=== PATIENT | female | born 1960 | race Caucasian/White ===

== ENCOUNTER 2016-05-17 21:53 | Outpatient (CLI) | payer MEDICARE ==
[2016-05-18 08:22] LABS: Chloride 100.1 mmol/L (98-107); Potassium 3.8 mmol/L (3.6-5.0)
[2016-05-18 08:23] LABS: Albumin 2.7 g/dL (3.9-5); Albumin/Globulin Ratio 0.6 %; Bilirubin,Total 0.4 mg/dL (0.1-1.2); Magnesium 1.8 mg/dL (1.7-2.3); Phosphorous 3.5 mg/dL (2.5-4.5); Total Protein 6.9 g/dL (6.3-8.2)
[2016-05-18 08:30] LABS: INR 1.11 (0.87-1.13); Red Blood Count 3.92 M/mm3 (3.65-5.03); White Blood Count 8.9 K/mm3 (4.5-11.0)
[2016-05-18 08:31] LABS: Hematocrit 29.8 % (30.3-42.9); Hemoglobin 9.2 gm/dl (10.1-14.3); Mean Corpuscular HGB Conc 31 % (30-34); Mean Corpuscular Hemoglobin 24 pg (28-32); Mean Corpuscular Volume 76 fl (79-97); Platelet Count 397 K/mm3 (140-440); Red Cell Distribution Width 24.6 % (13.2-15.2)
[2016-05-18 08:32] LABS: Eosinophils % (Auto) 2.3 % (0.0-4.3)
== END 2016-05-17 21:54 | disposition home or self-care (01) ==
LOC: LABHHL 21:53
DX: K91.89 Other postprocedural complications and disorders of digestive system (principal)
CPT/HCPCS: 36415; 80053; 83735; 84100; 85025; 85610

== ENCOUNTER 2016-05-25 13:26 | Outpatient (CLI) | payer MEDICARE ==
[2016-05-25 13:47] LABS: Hematocrit 31.9 % (30.3-42.9); Mean Corpuscular HGB Conc 32 % (30-34); Mean Corpuscular Volume 77 fl (79-97); Platelet Count 360 K/mm3 (140-440); Red Blood Count 4.13 M/mm3 (3.65-5.03); White Blood Count 9.3 K/mm3 (4.5-11.0)
[2016-05-25 13:54] LABS: INR 1.3 (0.87-1.13)
[2016-05-25 13:58] LABS: Mean Corpuscular Hemoglobin 24 pg (28-32); Red Cell Distribution Width 26.8 % (13.2-15.2)
[2016-05-25 14:02] LABS: Albumin 2.9 g/dL (3.9-5); Albumin/Globulin Ratio 0.7 %; Bilirubin,Total 0.4 mg/dL (0.1-1.2); Calcium 10.2 mg/dL (8.4-10.2); Chloride 99.6 mmol/L (98-107); Magnesium 1.8 mg/dL (1.7-2.3); Phosphorous 2.7 mg/dL (2.5-4.5); Potassium 3.7 mmol/L (3.6-5.0)
[2016-05-25 16:09] LABS: Basophils % (Manual) 0 % (0.0-1.8); Blastocytes % (Manual) 0 %
[2016-05-25 16:10] LABS: Hypochromasia 1+; Large Platelets 2+; Ovalocytes Few; Target Cells 1+; Tear Drop Cells Rare
[2016-05-25 16:19] LABS: Diff Status Complete; Platelet Estimate Consistent w Auto
== END 2016-05-25 13:27 | disposition home or self-care (01) ==
LOC: LAB 13:26
DX: K91.89 Other postprocedural complications and disorders of digestive system (principal)
CPT/HCPCS: 36415; 80053; 83735; 84100; 84478; 85007; 85025; 85610

== ENCOUNTER 2016-06-14 10:32 | Outpatient (CLI) | payer MEDICARE ==
[2016-06-14 10:47] LABS: Hematocrit 33.6 % (30.3-42.9); Hemoglobin 10.7 gm/dl (10.1-14.3); Mean Corpuscular HGB Conc 32 % (30-34); Mean Corpuscular Volume 77 fl (79-97); Platelet Count 397 K/mm3 (140-440); Red Blood Count 4.36 M/mm3 (3.65-5.03); White Blood Count 6.5 K/mm3 (4.5-11.0)
[2016-06-14 10:48] LABS: Mean Corpuscular Hemoglobin 25 pg (28-32); Red Cell Distribution Width 27.9 % (13.2-15.2)
[2016-06-14 10:57] LABS: INR 1.22 (0.87-1.13)
[2016-06-14 11:12] LABS: Albumin 3.3 g/dL (3.9-5); Albumin/Globulin Ratio 0.8 %; BUN/Creatinine Ratio 23.07; Bilirubin,Total 0.5 mg/dL (0.1-1.2); Calcium 10.6 mg/dL (8.4-10.2); Chloride 102.5 mmol/L (98-107); Magnesium 1.6 mg/dL (1.7-2.3); Phosphorous 2.6 mg/dL (2.5-4.5); Potassium 4.1 mmol/L (3.6-5.0); Total Protein 7.3 g/dL (6.3-8.2)
[2016-06-14 11:31] LABS: Anisocytosis 3+; Blastocytes % (Manual) 0 %; Hypochromasia 2+
[2016-06-14 11:32] LABS: Diff Status Complete; Giant Platelets Rare; Large Platelets 1+; Poikilocytosis 1+; Target Cells 1+
[2016-06-14 11:33] LABS: Platelet Estimate Cons
== END 2016-06-14 10:33 | disposition home or self-care (01) ==
LOC: LAB 10:32
DX: K91.89 Other postprocedural complications and disorders of digestive system (principal)
CPT/HCPCS: 36415; 80053; 83735; 84100; 84478; 85007; 85025; 85610

== ENCOUNTER 2016-06-18 10:32 | Outpatient (CLI) | payer MEDICARE ==
[2016-06-18 10:40] LABS: Hematocrit 33.7 % (30.3-42.9); Hemoglobin 10.7 gm/dl (10.1-14.3); Mean Corpuscular HGB Conc 32 % (30-34); Mean Corpuscular Volume 77 fl (79-97); Platelet Count 410 K/mm3 (140-440); Red Blood Count 4.38 M/mm3 (3.65-5.03); White Blood Count 5.8 K/mm3 (4.5-11.0)
[2016-06-18 10:48] LABS: Mean Corpuscular Hemoglobin 24 pg (28-32); Red Cell Distribution Width 27.8 % (13.2-15.2)
[2016-06-18 10:53] LABS: INR 1.68 (0.87-1.13)
[2016-06-18 11:03] LABS: Albumin 3.5 g/dL (3.9-5); Albumin/Globulin Ratio 0.9 %; BUN/Creatinine Ratio 17.5; Bilirubin,Total 0.5 mg/dL (0.1-1.2); Calcium 10.3 mg/dL (8.4-10.2); Magnesium 1.6 mg/dL (1.7-2.3); Phosphorous 2.3 mg/dL (2.5-4.5); Potassium 3.7 mmol/L (3.6-5.0); Total Protein 7.2 g/dL (6.3-8.2)
[2016-06-18 11:50] LABS: Blastocytes % (Manual) 0 %
[2016-06-18 11:51] LABS: Anisocytosis 3+; Hypochromasia 1+; Poikilocytosis 1+; Target Cells Few
[2016-06-18 11:52] LABS: Acanthocytes Few; Diff Status Complete; Large Platelets Few; Platelet Estimate Cons
== END 2016-06-18 10:33 | disposition home or self-care (01) ==
LOC: LABHHL 10:32
DX: K91.89 Other postprocedural complications and disorders of digestive system (principal)
CPT/HCPCS: 36415; 80053; 83735; 84100; 84478; 85007; 85025; 85610